=== PATIENT | male | born 1950 | race Caucasian/White ===

== ENCOUNTER → 2019-02-22 | Outpatient (CLI) | payer MEDICARE, OTHER ==
[~2019-02-22] VITALS: Ht 175.3 cm; Wt 77.1 kg
[~2019-02-22] MED LIST: FLORINEF ACETA0.1 MG PO; HUMALOG100 UNIT/1 SUBQ; LANTUS100 UNIT/M SUBQ; LATANOPROST 0.2.5 ML OPHTHALMIC; MIDODRINE HCL 55 M1 PO; PRAVACHOL40 MG PO; PROBIOTIC1 EAC1 PO; RENVELA800 MG PO; SENSIPAR 30 MG30 M1 PO
--- NOTE | ~2019-02-22 | OP ---
[address] [address] OPERATIVE REPORT Name: WICHO HARRIS Room: [facility]#: [id number] Admission: 02/22/19 Attend Phys: Onesimo Webb MD Discharge: Date of : 50 Report #: [id number] THIS REPORT FOR: //name// CC: Seb Webb DATE OF SERVICE: 02/22/2019 PREOPERATIVE DIAGNOSES: 1. End-stage renal disease. 2. Brachiocephalic arteriovenous fistula, right upper extremity. POSTOPERATIVE DIAGNOSES: 1. End-stage renal disease. 2. Brachiocephalic arteriovenous fistula, right upper extremity. PROCEDURES: 1. Arteriovenous fistula thrombectomy, right upper extremity. 2. Arteriovenous fistula thrombolysis, right upper extremity. 3. Angioplasty arterial anastomosis arteriovenous fistula, right upper extremity. 4. Fistulogram, right upper extremity. 5. Angioplasty venous outflow stenosis, right upper extremity arteriovenous fistula. 6. Angioplasty and stenting of the cephalic vein confluence with subclavian vein using a 12 x 80 Fluency stent graft. 7. Central venogram. SURGEON: Onesimo Webb MD SPORTS MEDICINE PHYSICIAN: Dr. Abdalla, resident year 2. COMPLICATIONS: None. ESTIMATED BLOOD LOSS: 100 mL. SPECIMEN: None. ANESTHESIA: Local sedation. COMPLICATIONS: None. INDICATIONS FOR PROCEDURE: The patient is well known to our service. He is a very pleasant 68-year-old white male from [place] whom we placed a brachiocephalic AV fistula. He has been using this for dialysis until last week when there was difficulty accessing it. He came in on Friday for dialysis and [address] [place] [address] OPERATIVE REPORT Name: WICHO HARRIS Room: [facility] Ayala.#: [id number] Admission: 02/22/19 Attend Phys: Onesimo Webb MD Discharge: Date of : 50 Report #: [id number] was noted to be thrombosed. Recommendations were for him to come up urgently for a fistulogram and thrombectomy. He presents today for this. Informed consent was obtained from the patient with risks including but not limited to bleeding, infection, need for further surgery, pain, , heart attack, stroke, steal syndrome, pulmonary embolism, need for catheter placement. Need for a new access. I think that there is a high likelihood that this fistula not be salvageable given that it has been almost a week that it has been thrombosed. DESCRIPTION OF PROCEDURE: The patient was taken to the angio suite, placed in supine position. Right arm was prepped and draped in usual sterile fashion. Timeout was performed. Sedation was initiated. A 20 mL of 1% lidocaine were used throughout the procedure for local anesthetic. I infused some lidocaine near the arterial anastomosis and accessed the fistula in antegrade fashion using a micropuncture kit. Prior to this in the preoperative holding area, I injected the fistula in multiple places with a total of 2 mg of TPA. I allowed this to marinate for approximately 30 minutes prior to the procedure. I used a Seldinger technique to exchange out for a microsheath and performed a fistulogram. There was liquefaction of the thrombus near the access of the fistula, but the outflow remained occluded. I used a Seldinger technique to exchange out for a 7-Belarusian sheath. I carefully used the wire and catheterized, I was able to cross the occlusion within the venous outflow and get my catheter into the central venous structures where I performed a central venogram. FINDINGS ON FISTULOGRAM: 1. Fistula was thrombosed. 2. After thrombectomy, there is a tight stenosis at the confluence of the subclavian vein and the cephalic vein. 3. There is a tight stenosis near the arterial anastomosis as well as at the arterial anastomosis. 4. After angioplasty, the arterial anastomosis and the fistula inflows are widely patent. 5. After thrombectomy, the access zone of the fistula and the venous outflow are widely patent. 6. After angioplasty and stenting, the cephalic vein proximal at the confluence with the subclavian vein is widely patent. 7. No central venous stenosis or thrombosis identified on central venogram. I performed a central venogram. I then performed thrombectomy of the cephalic vein outflow as well as the access zone and the central veins. I used a 6 and 8 mm balloon for this. I was able to clear a large amount of the thrombus. I now had good flow through. I angioplastied the venous outflow and the confluence using 6 and 8 mm balloons. I increased to 10 mm balloon at the confluence. I initially had what appeared to be good outflow. I removed [place] [address] OPERATIVE REPORT Name: WICHO HARRIS Room: [facility] Garcia#: [id number] Admission: 02/22/19 Attend Phys: Onesimo Webb MD Discharge: Date of : 50 Report #: [id number] I placed a Monocryl stitch in the skin. I re-accessed the AV fistula in a retrograde fashion in the access zone. I replaced my 7-Belarusian sheath at this location. I did infuse some more lidocaine prior to access. I used a wire and catheter to cross the stenosis at the arterial anastomosis and angioplastied these areas with a 6 mm balloon. Completion imaging showed excellent result with much improved blood flow. However, my venous outflow appeared to have re-occluded on my imaging. I was able to withdraw my sheath and put my wire back up in antegrade fashion and readvanced my sheath antegrade. I repeated my venogram of the proximal venous outflow, which showed that it had indeed reoccluded. I used a wire and catheter and attempted to recannulate into the central venous structures, but got caught into a dissection plane. It was clear that there have been some tear in the vein that I did not recognize earlier. With some difficulty, I was able to find my true lumen and recrossed into the subclavian vein. I re-angioplastied the venous outflow and had return a flow down the cephalic vein. It was clear that I would need to stent this to keep it from re-occluding. I thus prepped a 12 x 80 Fluency stent graft. I removed my 7-Belarusian sheath. I cut the skin with a knife and I was able to bear back the stent into the central venous structures. I deployed the Fluency stent graft at the confluence of the cephalic vein with the subclavian vein stent deployed in excellent position. I post-dilated with a 10 mm balloon. Completion imaging showed excellent result with widely patent flow through the cephalic vein outflow into the subclavian vein. Maintenance of the proximal subclavian vein outflow from the arm and minimization of the collateralized flow. I now had a roaring thrill within the fistula. I removed my sheath and wire. I placed a Monocryl stitch in the skin. There was no bleeding or hematoma. The patient tolerated the procedure well and was taken alert and awake to recovery room in good condition. All needle and instrument counts were correct at the end of the case. The patient can use his access tomorrow for dialysis. I would recommend a repeat fistulogram in 3 months to make sure that everything is remaining patent. By: [id number] Webb MD /nt
[2019-02-22 14:34] VITALS: BP 146/76
[2019-02-22 14:41] LABS: HEMATOCRIT 37.8 % (42.0-52.0); HEMOGLOBIN 12.6 gm/dL (14.0-18.0); MCHC 33.3 g/dL (28.0-37.0); MPV 8.9 fl. (7.2-11.1); RBC 4.2 mil/uL (4.50-6.00); RDW-CV 14.6 % (10.5-14.5); WBC 10.5 thou/uL (4.0-11.0)
[2019-02-22 14:57] LABS: CALCIUM 9.3 mg/dL (8.5-10.1); CREATININE 7.1 mg/dL (0.6-1.3); POTASSIUM 4.2 mmol/L (3.5-5.1)
[2019-02-22 17:48] VITALS: BP 137/60
[2019-02-22 17:49] VITALS: BP 137/60
== END | disposition home or self-care (01) ==
LOC: M.INT 12:14
PROVIDERS: Surgery Vascular Surgery
DX: T82.590A Other mechanical complication of surgically created arteriovenous fistula, initial encounter (principal); E11.22 Type 2 diabetes mellitus with diabetic chronic kidney disease; N18.6 End stage renal disease; E78.5 Hyperlipidemia, unspecified; H40.9 Unspecified glaucoma; Z98.0 Intestinal bypass and anastomosis status; Z98.890 Other specified postprocedural states; Z99.2 Dependence on renal dialysis; Z79.4 Long term (current) use of insulin; Z79.899 Other long term (current) drug therapy; Y83.8 Other surgical procedures as the cause of abnormal reaction of the patient, or of later complication, without mention of misadventure at the time of the procedure